=== PATIENT | male | born 1990 | race Caucasian/White ===

== ENCOUNTER → 2016-12-28 | Outpatient (CLI) | payer BC | LOC: KOH-I 12-05 14:30 | DX: M54.5 Low back pain (principal); M47.817 Spondylosis without myelopathy or radiculopathy, lumbosacral region; M51.17 Intervertebral disc disorders with radiculopathy, lumbosacral region | CPT/HCPCS: 72148 ==

== ENCOUNTER → 2017-01-10 | Outpatient (CLI) | payer BC | LOC: RAD 18:20 | DX: R10.2 Pelvic and perineal pain (principal); M25.851 Other specified joint disorders, right hip; M25.852 Other specified joint disorders, left hip | CPT/HCPCS: 73522 ==